=== PATIENT | male | born 1950 | race Caucasian/White ===

== ENCOUNTER 2018-06-08 20:09 | Inpatient (IN) | payer MEDICARE ==
[~2018-06-08] VITALS: Ht 175.3 cm; Wt 93.5 kg
[2018-06-08 20:32] LABS: BASOPHILS # (AUTO) 0.06 x10^3/uL (0-0.1); BASOPHILS % (AUTO) 0 % (0-1); EOSINOPHILS # (AUTO) 0.35 x10^3/uL (0-0.4); EOSINOPHILS % (AUTO) 2 % (1-7); LYMPHOCYTES # (AUTO) 3.16 x10^3/uL (1-3.4); LYMPHOCYTES % (AUTO) 20 % (22-44); MD NO; MEAN CORPUSCULAR HEMOGLOBIN 31.8 pg (27.5-34.5); MEAN CORPUSCULAR HGB CONC 34.1 g/dL (33.2-36.2); MEAN CORPUSCULAR VOLUME 93.2 fL (81-97); MEAN PLATELET VOLUME 9.1 fL (7.4-10.4); MONOCYTES # (AUTO) 1.02 x10^3/uL (0.2-0.8); MONOCYTES % (AUTO) 6 % (2-9); NEUTROPHILS # (AUTO) 11.45 x10^3/uL (1.8-6.8); NEUTROPHILS % (AUTO) 71 % (42-75); PLATELET COUNT 276 x10^3/uL (130-400); RED BLOOD COUNT 4.79 x10^6/uL (4.38-5.82); RED CELL DISTRIBUTION WIDTH 14.8 % (9.4-14.8)
--- NOTE | 2018-06-08 20:38 | NUR ---
PT A&OX4, RESP EVEN & UNLABORED, SPEECH CLEAR,. REDNESS & SWELLING TO LT INNER ANKLE. STATES "THERE WAS AN ECZEMA PATCH THERE", WORE DIFFERENT SNOW BOOTS THAT PUT PRESSURE ON THE AREA. HAS BEEN APPLYING HOMEOPATHIC OINTMENT TO AREA. STATES HE'S ALLERGIC TO NEOSPORIN. RED LINE RUNNING UP INNER LEG FROM ANKLE TO GROIN. PEDAL PULSE STRONG & REG
[2018-06-08 20:43] LABS: ALBUMIN 3.2 g/dL (3.4-5.0); ANION GAP 5 mmol/L (5-15); CALCIUM 8.5 mg/dL (8.5-10.1); CHLORIDE 103 mmol/L (98-107); CREATININE 1.23 mg/dL (0.7-1.3)
[2018-06-08] MEDS ORDERED: AMPICILLIN/SULBACTAM 3 GM IV ONE (21:00)
[2018-06-08] MEDS ORDERED: AMPICILLIN/SULBACTAM 3 GM in SODIUM CHLORIDE 0.9% 100 ML IV ONE (21:00)
--- NOTE | 2018-06-08 21:28 | NUR ---
UNASYN INFUSING VIA PUMP PER EMAR. IV SITE PATENT
--- NOTE | 2018-06-08 22:03 | NUR ---
ROCEPHIN INFUSION COMPLETED.
--- NOTE | 2018-06-08 22:29 | NUR ---
PT REPORT TO ALEXIS ALVAREZ FOR ROOM [id number]
[2018-06-08 22:46] VITALS: BP 137/84
[2018-06-08] MEDS ORDERED: morphine SULFATE 10 MG/ML, 1ML IVPush PRN (23:00)
[2018-06-08] MEDS: NICOTINE 7 MG/24 HR PATCH.TD24 TD SCH (23:00)
[2018-06-08] MEDS ORDERED: POLYETHYLENE GLYCOL 17 GM PACKET PO PRN (23:00)
[2018-06-08] MEDS ORDERED: PHARMACOKINETIC CONSULTATION MC ONE (23:00)
[2018-06-08] MEDS ORDERED: PROMETHAZINE 25 MG/ML, 1ML IM PRN (23:00)
[2018-06-08] MEDS ORDERED: ONDANSETRON ODT 4 MG PO PRN (23:00)
[2018-06-08] MEDS ORDERED: hydrALAzine 20 MG/ML, 1ML IVPush PRN (23:00)
[2018-06-08] MEDS ORDERED: VANCOMYCIN 1,900 MG in SODIUM CHLORIDE 0.9% 250 ML IV SCH (23:00)
[2018-06-08] MEDS: ENOXAPARIN 40 MG/0.4 ML SQ SCH (23:00)
[2018-06-08] MEDS ORDERED: BISACODYL 10 MG SUPP PR PRN (23:00)
[2018-06-08] MEDS ORDERED: VANCOMYCIN PMX 1GM/200ML 200 ML IV ONE (23:00)
[2018-06-08] MEDS ORDERED: VANCOMYCIN PER PHARMACY MC PRN (23:00)
[2018-06-08] MEDS ORDERED: PHARMACOKINETIC MONITORING MC PRN (23:00)
[2018-06-08] MEDS ORDERED: ONDANSETRON 2MG/ML, 2ML IVPush PRN (23:00)
[2018-06-08] MEDS ORDERED: DOCUSATE 100 MG CAPSULE PO PRN (23:00)
[2018-06-08] MEDS: SODIUM CHLORIDE 0.9% 1,000 ML IV SCH (23:09)
[2018-06-08] MEDS: HYDROcodone/APAP 5/325 TABLET PO PRN (23:09)
[2018-06-08 23:20] LABS: HEMOGLOBIN A1C 5.7 % (4.2-6.3)
[2018-06-08 23:23] LABS: FREE T4 (FREE THYROXINE) 1.12 ng/dL (0.76-1.46); THYROID STIMULATING HORMONE 1.03 mIU/L (0.358-3.740)
[2018-06-08 23:28] LABS: HCT (SEDRATE) 44.6 % (39.2-51.8)
[2018-06-09 01:00] VITALS: BP 117/69
[2018-06-09] MEDS: AMPICILLIN/SULBACTAM 3 GM in SODIUM CHLORIDE 0.9% 100 ML IV SCH ×4 (03:52→21:10)
[2018-06-09] MEDS: HYDROcodone/APAP 5/325 TABLET PO PRN ×3 (03:59→21:10)
[2018-06-09 06:04] LABS: BASOPHILS # (AUTO) 0.05 x10^3/uL (0-0.1); BASOPHILS % (AUTO) 0 % (0-1); EOSINOPHILS % (AUTO) 3 % (1-7); LYMPHOCYTES # (AUTO) 3.29 x10^3/uL (1-3.4); LYMPHOCYTES % (AUTO) 22 % (22-44); MD NO; MEAN CORPUSCULAR HEMOGLOBIN 32.1 pg (27.5-34.5); MEAN CORPUSCULAR HGB CONC 34.4 g/dL (33.2-36.2); MEAN CORPUSCULAR VOLUME 93.2 fL (81-97); MEAN PLATELET VOLUME 9.6 fL (7.4-10.4); MONOCYTES # (AUTO) 1.31 x10^3/uL (0.2-0.8); MONOCYTES % (AUTO) 9 % (2-9); NEUTROPHILS # (AUTO) 9.87 x10^3/uL (1.8-6.8); NEUTROPHILS % (AUTO) 66 % (42-75); PLATELET COUNT 225 x10^3/uL (130-400); RED BLOOD COUNT 4.35 x10^6/uL (4.38-5.82); RED CELL DISTRIBUTION WIDTH 14.9 % (9.4-14.8)
[2018-06-09 06:13] LABS: ALBUMIN 2.8 g/dL (3.4-5.0); ANION GAP 7 mmol/L (5-15); CALCIUM 8.3 mg/dL (8.5-10.1); CHLORIDE 107 mmol/L (98-107)
[2018-06-09 06:18] LABS: ALANINE AMINOTRANSFERASE 34 U/L (12-78); ALKALINE PHOSPHATASE 103 U/L (45-117); BILIRUBIN,TOTAL 0.3 mg/dL (0.2-1.0); CHOL/HDL RATIO 2.1; CHOLESTEROL, TOTAL 158 mg/dL (140-239); CREATININE 0.76 mg/dL (0.7-1.3); HDL CHOL % 47 % (26-37); HDL CHOLESTEROL (DIRECT) 75 mg/dL (40-60); LDL CHOLESTEROL,CALCULATED 64 mg/dL (54-169); LDL/HDL RATIO 0.9 (0.5-3.0); TOTAL PROTEIN 6.9 g/dL (6.4-8.2); TRIGLYCERIDES 95 mg/dL (50-200); VLDL CHOLESTEROL 19 mg/dL (0-25)
[2018-06-09 07:40] VITALS: BP 124/73
[2018-06-09] MEDS: SODIUM CHLORIDE 0.9% 1,000 ML IV SCH (09:08)
[2018-06-09] MEDS: VANCOMYCIN 1,900 MG in SODIUM CHLORIDE 0.9% 250 ML IV SCH ×2 (12:04→22:51)
[2018-06-09 13:33] VITALS: BP 133/73
[2018-06-09 20:22] VITALS: BP 132/68
[2018-06-09] MEDS ORDERED: HYDROCORTISONE CRM 1%, 30GM TP PRN (21:30)
[2018-06-09] MEDS: ENOXAPARIN 40 MG/0.4 ML SQ SCH (22:37)
[2018-06-09] MEDS: NICOTINE 7 MG/24 HR PATCH.TD24 TD SCH (22:38)
[2018-06-10 00:14] VITALS: BP 158/91
[2018-06-10] MEDS: AMPICILLIN/SULBACTAM 3 GM in SODIUM CHLORIDE 0.9% 100 ML IV SCH ×4 (03:06→21:12)
[2018-06-10 05:35] LABS: BASOPHILS # (AUTO) 0.06 x10^3/uL (0-0.1); BASOPHILS % (AUTO) 1 % (0-1); EOSINOPHILS # (AUTO) 0.62 x10^3/uL (0-0.4); EOSINOPHILS % (AUTO) 5 % (1-7); LYMPHOCYTES # (AUTO) 3.82 x10^3/uL (1-3.4); LYMPHOCYTES % (AUTO) 29 % (22-44); MD NO; MEAN CORPUSCULAR HEMOGLOBIN 31.8 pg (27.5-34.5); MEAN CORPUSCULAR HGB CONC 33.7 g/dL (33.2-36.2); MEAN CORPUSCULAR VOLUME 94.3 fL (81-97); MEAN PLATELET VOLUME 9.6 fL (7.4-10.4); MONOCYTES # (AUTO) 0.91 x10^3/uL (0.2-0.8); MONOCYTES % (AUTO) 7 % (2-9); NEUTROPHILS # (AUTO) 7.79 x10^3/uL (1.8-6.8); NEUTROPHILS % (AUTO) 59 % (42-75); PLATELET COUNT 242 x10^3/uL (130-400); RED BLOOD COUNT 4.46 x10^6/uL (4.38-5.82); RED CELL DISTRIBUTION WIDTH 14.5 % (9.4-14.8)
[2018-06-10 05:42] LABS: ANION GAP 5 mmol/L (5-15); CALCIUM 8.2 mg/dL (8.5-10.1); CHLORIDE 109 mmol/L (98-107); CREATININE 0.66 mg/dL (0.7-1.3)
[2018-06-10 07:23] VITALS: BP 155/91
[2018-06-10] MEDS: VANCOMYCIN 1,900 MG in SODIUM CHLORIDE 0.9% 250 ML IV SCH ×2 (11:41→23:32)
[2018-06-10 13:55] VITALS: BP 151/83
[2018-06-10 20:49] VITALS: BP 151/75
[2018-06-10] MEDS: ACETAMINOPHEN 325 MG TABLET PO PRN ×2 (21:22→21:24)
[2018-06-10] MEDS: ENOXAPARIN 40 MG/0.4 ML SQ SCH (23:00)
[2018-06-10] MEDS: NICOTINE 7 MG/24 HR PATCH.TD24 TD SCH (23:00)
[2018-06-11 03:02] VITALS: BP 115/71
[2018-06-11] MEDS: AMPICILLIN/SULBACTAM 3 GM in SODIUM CHLORIDE 0.9% 100 ML IV SCH ×2 (03:25→09:49)
[2018-06-11] MEDS: ACETAMINOPHEN 325 MG TABLET PO PRN ×2 (03:29→09:49)
[2018-06-11 07:17] VITALS: BP 133/65
[2018-06-11] MEDS ORDERED: AMOX1TAB64 PO (11:21)
[2018-06-11] MEDS ORDERED: VANCOMYCIN 1,900 MG in SODIUM CHLORIDE 0.9% 250 ML IV SCH (17:00)
== END 2018-06-11 12:32 | disposition home or self-care (01) | DRG 603 ==
LOC: ED 21:34 → EDIP 21:55 → 3NE 22:39 → DCLOUNGE 06-11 12:22
PROVIDERS: ADMIT Internal Medicine; ATTEND Internal Medicine
DX: L03.116 Cellulitis of left lower limb (principal); E44.0 Moderate protein-calorie malnutrition; L30.9 Dermatitis, unspecified; F17.210 Nicotine dependence, cigarettes, uncomplicated; F12.90 Cannabis use, unspecified, uncomplicated; Z71.6 Tobacco abuse counseling; B95.61 Methicillin susceptible Staphylococcus aureus infection as the cause of diseases classified elsewhere; B95.0 Streptococcus, group A, as the cause of diseases classified elsewhere; Z68.30 Body mass index [BMI] 30.0-30.9, adult
CPT/HCPCS: 36415; 80048; 80053; 80061; 80202; 82040; 83036; 83605; 83735; 84439; 84443; 85025; 85651; 86140; 87040; 87070; 87077; 87147; 87186; 87205; 99285; G0378; J0295; J3370; J7030; J7050

== ENCOUNTER → 2018-07-02 | Outpatient (CLI) | payer MEDICARE ==
[~2018-07-02] MED LIST: AMOX1TAB64 PO
[2018-07-02 13:16] LABS: BASOPHILS # (AUTO) 0.06 x10^3/uL (0-0.1); BASOPHILS % (AUTO) 1 % (0-1); EOSINOPHILS # (AUTO) 0.39 x10^3/uL (0-0.4); EOSINOPHILS % (AUTO) 4 % (1-7); LYMPHOCYTES # (AUTO) 2.12 x10^3/uL (1-3.4); LYMPHOCYTES % (AUTO) 19 % (22-44); MD NO; MEAN CORPUSCULAR HEMOGLOBIN 31.5 pg (27.5-34.5); MEAN CORPUSCULAR HGB CONC 33.8 g/dL (33.2-36.2); MEAN CORPUSCULAR VOLUME 93.2 fL (81-97); MONOCYTES # (AUTO) 0.57 x10^3/uL (0.2-0.8); MONOCYTES % (AUTO) 5 % (2-9); NEUTROPHILS # (AUTO) 7.81 x10^3/uL (1.8-6.8); NEUTROPHILS % (AUTO) 71 % (42-75); PLATELET COUNT 265 x10^3/uL (130-400); RED BLOOD COUNT 4.64 x10^6/uL (4.38-5.82); RED CELL DISTRIBUTION WIDTH 14.9 % (9.4-14.8)
== END | disposition home or self-care (01) ==
LOC: LAB 13:01
PROVIDERS: ATTEND Family Medicine
DX: L03.116 Cellulitis of left lower limb (principal)
CPT/HCPCS: 36415; 85025